=== PATIENT | female | born 1970 | race American Indian/Alaskan Native ===

== ENCOUNTER 2018-02-11 13:01 | Emergency (ER) | payer MEDICAID ==
[2018-02-11 13:18] VITALS: BP 130/77
[2018-02-11] MEDS ORDERED: MOTRIN PO ONE (18:16)
--- NOTE | 2018-02-11 19:12 | Emergency Department Report ---
ED Chest Pain HPI - General Chief Complaint: Chest Pain Stated Complaint: CHEST PAIN Time Seen by Provider: 02/11/18 18:09 Source: patient Mode of arrival: Ambulatory Limitations: No Limitations - History of Present Illness Initial Comments: Patient is a 47-year-old female whose been having 5 months of chest pain. Patient states it's a left-sided chest pain that comes and goes. She states that it just feels "sore". Patient denies any pleuritic component or exertional component. Patient states that sometimes when she is lying flat or lying on her side but can happen in the day. Patient denies any fevers chills nausea vomiting or cough cold or congestion. Patient denies any leg swelling or recent travel. Patient does not have a history of chest pain. It is oozing a little last several months. Patient initially thought that this was indigestion but is starting to become more worried. Severity scale (0 -10): 4 - Related Data Previous Rx's Medication Instructions Recorded Last Taken Type Ibuprofen [Motrin] 600 mg PO Q8H PRN #20 tablet 02/11/18 Unknown Rx methOCARBAMOL [Robaxin TAB] 500 mg PO Q6H PRN #10 tablet 02/11/18 Unknown Rx Allergies Allergy/AdvReac Type Severity Reaction Status Date / Time morphine Allergy Hives Verified 02/11/18 13:12 cats Allergy Itching Uncoded 02/11/18 13:12 dust mites Allergy Itching Uncoded 02/11/18 13:12 Heart Score - HEART Score History: Slightly suspicious EKG: Normal Age: 45-65 Risk factors: No known risk factors Troponin: < normal limit HEART Score: 1 ED Review of Systems ROS: Stated complaint: CHEST PAIN Other details as noted in HPI Comment: All other systems reviewed and negative ED Past Medical Hx - Past Medical History Previous Medical History?: No - Surgical History Additional Surgical History: C SECTION X3 FIBRIOD - Social History Smoking Status: Former Smoker Substance Use Type: Alcohol, Marijuana - Medications Home Medications: Home Medications Medication Instructions Recorded Confirmed Last Taken Type Ibuprofen [Motrin] 600 mg PO Q8H PRN #20 tablet 02/11/18 Unknown Rx methOCARBAMOL [Robaxin TAB] 500 mg PO Q6H PRN #10 tablet 02/11/18 Unknown Rx ED Physical Exam - General Limitations: No Limitations General appearance: alert, in no apparent distress - Head Head exam: Present: atraumatic, normocephalic - Eye Eye exam: Present: normal appearance - ENT ENT exam: Present: mucous membranes moist - Neck Neck exam: Present: normal inspection - Respiratory Respiratory exam: Present: normal lung sounds bilaterally, chest wall tenderness. Absent: respiratory distress, wheezes, rales, rhonchi - Cardiovascular Cardiovascular Exam: Present: regular rate, normal rhythm. Absent: systolic murmur, diastolic murmur, rubs, gallop - GI/Abdominal GI/Abdominal exam: Present: soft, normal bowel sounds - Extremities Exam Extremities exam: Present: normal inspection - Back Exam Back exam: Present: normal inspection - Neurological Exam Neurological exam: Present: alert, oriented X3 - Psychiatric Psychiatric exam: Present: normal affect, normal mood - Skin Skin exam: Present: warm, dry, intact, normal color. Absent: rash ED Course Vital Signs 02/11/18 13:13 Temperature 98.8 F Pulse Rate 63 Respiratory 18 Rate Blood Pressure 130/77 O2 Sat by Pulse 100 Oximetry ED Medical Decision Making - EKG Data -: EKG Interpreted by Me EKG shows normal: sinus rhythm, axis, intervals, QRS complexes, ST-T waves Rate: normal - EKG Data Interpretation: normal EKG - Radiology Data interpreted by me: Chest x-ray is within normal limits - Medical Decision Making Patient's symptoms have been going on for probably 5 months. Patient vital signs within normal limits and patient appears well. Patient between the EKG and chest x-ray has been ruled out for pericarditis pneumonia, pericardial effusion acute MT lung mass and congestive heart failure. Patient will be referred to cardiology for stress tests. Patient also voiced some concerns that she has not had a mammogram and the patient will be referred to Dr. Mcgowan the breast surgeon Critical care attestation.: If time is entered above; I have spent that time in minutes in the direct care of this critically ill patient, excluding procedure time. ED Disposition Clinical Impression: Atypical chest pain Disposition: -01 TO HOME OR SELFCARE Is pt being admited?: No Does the pt Need Aspirin: No Condition: Stable Instructions: Chest Pain (ED) Referrals: [facility] [Outside] - 3-5 Days JAVAN MCGOWAN MD [Staff Physician] - 3-5 Days LARISA NICOLE MD [Staff Physician] - 3-5 Days
--- NOTE | 2018-02-11 19:43 | XRay Report ---
FINAL REPORT PROCEDURE: XR CHEST ROUTINE 2V TECHNIQUE: PA and lateral chest radiographs were obtained. CPT 94313 HISTORY: Chest pain. COMPARISON: No prior studies are available for comparison. FINDINGS: Heart: Normal. Mediastinum/Vessels: Normal. Lungs/Pleural space: Normal. Bony thorax: No acute osseous abnormality. Other: IMPRESSION: No radiographic evidence of acute cardiopulmonary disease.
== END 2018-02-11 19:19 | disposition home or self-care (01) ==
LOC: ED 13:01
DX: R07.89 Other chest pain (principal); Z87.891 Personal history of nicotine dependence; F12.10 Cannabis abuse, uncomplicated; Z88.6 Allergy status to analgesic agent; Z91.09 Other allergy status, other than to drugs and biological substances
CPT/HCPCS: 71046; 93005; 93010; 99283